=== PATIENT | male | born 1995 | race Caucasian/White ===

== ENCOUNTER 2018-03-04 21:59 | Emergency (ER) | payer OTHER ==
[~2018-03-04] VITALS: Ht 182.9 cm; Wt 83.9 kg
[2018-03-04 22:16] VITALS: BP 113/65
[2018-03-04] MEDS ORDERED: Lidocaine 1% MPF 10mg/ml 5ml INJ ONE (22:30)
[2018-03-04] MEDS ORDERED: valACYclovir HCL 500mg tab ORAL ONE (22:30)
[2018-03-04 22:46] LABS: APPEARANCE,URINE CLEAR; BILIRUBIN, URINE NEGATIVE (NEGATIVE); COLOR,URINE PALE YELLOW; GLUCOSE, URINE (UA) NEGATIVE (NEGATIVE); KETONES,URINE NEGATIVE (NEGATIVE); LEUKOCYTE ESTERASE ,URINE 1+ (NEGATIVE); NITRITE,URINE NEGATIVE (NEGATIVE); PH,URINE 6.5 (4.5-8.0); PROTEIN,URINE NEGATIVE (NEGATIVE); UROBILINOGEN,URINE NORMAL MG/DL (0.0-1.0)
--- NOTE | 2018-03-04 23:26 | Emergency Room Report ---
History of Present Illness General Chief Complaint: General Complaint Source: Patient Present Illness HPI The patient presents believing he has herpes. He has felt ill for at least 2 days. He had some nausea and vomited into his mouth this morning. He's felt dizzy and somewhat "out of it". He denies any fever or chills. He also has a sore in mouth which is different from where his usual cold sores are. His had unprotected sex. He has a slight amount of dysuria. There is no discharge. He also noticed left axillary lymph node that was about the size of a marble. This is gotten somewhat better. He denies any rashes. He's never had herpes before. He does not believe he is at risk for HIV. The patient recently returned from a vacation in [place]. He was outdoors by a river. He denies any tick bites or rashes. He did get bitten by mosquitoes there. He denies any neck stiffness or headache. The patient is under somewhat stress at this time. He started a job today at [email or web address]. Allergies: Coded Allergies: No Known Allergies (Unverified , 03/04/18) Patient History Past Medical History: none Social History: Reports: alcohol use; Denies: smoking, drug use Social History Narrative works at [employer] Reviewed Nursing Documentation: PMH: Agreed; PSxH: Agreed Nursing Documentation-PM Past Medical History: No Stated History Review of Systems All Other Systems: negative except mentioned in HPI Physical Exam Vital Signs Date Time Temp Pulse Resp B/P (MAP) Pulse Ox O2 Delivery O2 Flow Rate FiO2 03/04/18 22:08 98.0 74 18 113/65 98 Room Air 98.1 Sp02 EP Interpretation: reviewed, normal General Appearance: well appearing, no apparent distress, GCS 15 Head: normocephalic Eyes: bilateral eye normal inspection, bilateral eye PERRL ENT: normal pharynx, moist mucus membranes, other - aphthous ulcer R lower lip Neck: supple Respiratory: lungs clear, normal breath sounds Cardiovascular #1: regular rate, rhythm Cardiovascular #2: 2+ radial (R) Gastrointestinal: normal inspection, normal bowel sounds, non tender, no mass, non-distended Genitourinary: penis normal, scrotum normal Musculoskeletal: back normal, gait/station normal, normal range of motion Neurologic: alert, oriented x3, grossly normal Psychiatric: anxious Skin: normal inspection, warm/dry Lymphatic: other - unable to feel L axillary node Medical Decision Making Diagnostic Impression: Primary Impression: Aphthous ulcer Additional Impressions: Lymphadenopathy Viral syndrome Dysuria ER Course Patient presents with several symptoms. Differential includes sexually transmitted disease, aphthous stomatitis, viral syndrome, lymphadenitis, chlamydia amongst others. Exam is against gonorrhea. The fact that the sores in his mouth or different from where his usual cold sores occur suggests a different viral etiology. Considerations are both for oral herpes and also adenovirus. The axillary lymph node is improving. How this relates is unclear. No rash so doubt Lyme disease. Clinically the patient is nontoxic. He' ll be evaluated with urinalysis including test for gonorrhea and GC which are send out. He'll be treated with Rocephin, doxycycline and valacyclovir. Valacyclovir is not available and therefore acyclovir is given. Urinalysis essentially negative. Discussed need for further testing and follow up. Patient understands. If worsened symptoms, consider more extensive lab evaluation. Patient stable for outpatient observation and treatment. Laboratory Tests Test 03/04/18 22:20 Urine Color Pale yellow Urine Appearance Clear Urine pH 6.5 (4.5-8.0) Urine Specific [place] 1.015 (1.005-1.035) Urine Protein Negative (NEGATIVE) Urine Glucose (UA) Negative (NEGATIVE) Urine Ketones Negative (NEGATIVE) Urine Occult Blood Negative (NEGATIVE) Urine Nitrite Negative (NEGATIVE) Urine Bilirubin Negative (NEGATIVE) Urine Urobilinogen Normal MG/DL (0.0-1.0) Urine Leukocyte Esterase 1+ (NEGATIVE) H Urine RBC 0-2 /HPF (0 - 0) H Urine WBC 0-2 /HPF (0 - 0) Urine Squamous Epithelial Cells None /LPF (NONE/OCC) Urine Bacteria Few /HPF (NONE) Chlamydia trachomatis RNA Pending Neisseria gonorrhoeae RNA Pending Last Vital Signs Date Time Temp Pulse Resp B/P (MAP) Pulse Ox O2 Delivery O2 Flow Rate FiO2 03/04/18 23:57 98.1 68 18 119/66 99 Room Air 98.1 Status: improved Disposition: HOME, SELF-CARE Condition: Improved Scripts Doxycycline Monohydrate* (DOXYCYCLINE MONOHYDRATE*) 100 Mg Capsule 100 MG ORAL Q12H, #14 CAP 0 Refills Prov: Ernesto Atwood M.D. 03/04/18 Acyclovir* (ACYCLOVIR*) 400 Mg Tablet 400 MG ORAL TID, #20 TAB Prov: Ernesto Atwood M.D. 03/04/18 Ernesto Atwood M.D. Mar 04, 2018 23:26
[2018-03-04] MEDS ORDERED: DOXYCYCLINE MO100 MG ORAL (23:42)
[2018-03-04] MEDS ORDERED: ACYCLOVIR400 MG ORAL (23:42)
[2018-03-04 23:56] VITALS: BP 119/66
[2018-03-04 23:57] VITALS: BP 119/66
== END 2018-03-04 23:58 | disposition home or self-care (01) ==
LOC: EMR 22:47
DX: B34.9 Viral infection, unspecified (principal); R30.0 Dysuria; R59.1 Generalized enlarged lymph nodes; K12.0 Recurrent oral aphthae
CPT/HCPCS: 81003; 87491; 87590; 99283; J0696